=== PATIENT | male | born 1990 | race Caucasian/White ===

== ENCOUNTER 2016-06-01 14:53 | Emergency (ER) | payer MEDICAID ==
[~2016-06-01] VITALS: Ht 167.6 cm; Wt 119.0 kg
[~2016-06-01 14:53] MED LIST: CIPR500T4 PO; IBUP-1542 PO; MAG-19 PO; OMEP20CA16 PO
[2016-06-01 15:01] VITALS: Ht 167.6 cm; Wt 119.0 kg
[2016-06-01] MEDS ORDERED: ALBUTEROL 0.5% (NEB) 2.5 MG/0.5 ML AMP HHN STA (15:57)
[2016-06-01] MEDS ORDERED: predniSONE 20 MG TAB PO ONE (16:00)
[2016-06-01 16:08] LABS: URINE BLOOD (Dip) POC Negative (NEGATIVE)
[2016-06-01] MEDS ORDERED: ALBU18HF INHALATION (17:12)
[2016-06-01] MEDS ORDERED: DOXY100T20 PO (17:12)
[2016-06-01] MEDS ORDERED: PRED20TA PO (17:12)
[2016-06-01] MEDS ORDERED: AZIT250T94 PO (17:13)
--- NOTE | 2016-06-01 17:17 | ERD ---
ER Documentation Chief Complaint Date/Time DATE: 06/01/16 TIME: 17:15 Chief Complaint BIB SELF C/O SOB X 1 WEEK AND BURNING UPON URINATION X 3 DAYS HPI This 26-year-old male complains of a cough and shortness of breath the last week. He has productive sputum. He denies fevers, vomiting, abdominal pain. Is no additional complaint of some sensation of burning for last 3 days. He denies discharge. He denies any known exposure to STD or recent unprotected sex . ROS All systems reviewed and are negative except as per history of present illness. Medications Home Meds Active Scripts Azithromycin* (Zithromax*) 250 Mg Tablet, 250 MG PO .ZPACK DIRECTED, #6 TAB TAKE 500 MG (2 TABS) THE FIRST DAY THEN 250 MG (1 TAB) DAYS 2-5 Prov:LYLE LEWIS MD 06/01/16 Albuterol Sulfate* (Ventolin HFA*) 18 Gm Hfa.aer.ad, 2 PUFF INHALATION Q4H for 7 Days, #1 INHALER Prov:LYLE LEWIS MD 06/01/16 Prednisone* (Prednisone*) 20 Mg Tab, 40 MG PO DAILY for 4 Days, TAB Prov:LYLE LEWIS MD 06/01/16 Omeprazole* (Omeprazole*) 20 Mg Capsule.dr, 20 MG PO DAILY, #30 CAP Prov:AMI GOMEZ NP 05/20/15 Magaldrate/Simethicone* (Mylanta*) 355 Ml Susp, 30 ML PO QID Y for GASTROINTESTINAL UPSET, #1 BOTTLE Prov:AMI GOMEZ NP 05/20/15 Ciprofloxacin Hcl* (Ciprofloxacin Hcl*) 500 Mg Tablet, 500 MG PO BID for 10 Days , TAB Prov:AMI GOMEZ NP 02/18/15 Ibuprofen* (Ibuprofen*) 600 Mg Tablet, 600 MG PO Q6 for 3 Days, TAB Prov:LAKSHMI SMITH 01/23/15 Discontinued Scripts Doxycycline Hyclate* (Doxycycline Hyclate*) 100 Mg Tablet., 100 MG PO BID for 10 Days, TAB Prov:LYLE LEWIS MD 06/01/16 Allergies Allergies: Coded Allergies: No Known Drug Allergy (Verified Allergy, Mild, 01/23/14) PMhx/Soc History of Surgery: No Anesthesia Reaction: No Hx Neurological Disorder: No Hx Respiratory Disorders: No Hx Cardiac Disorders: Yes (heart murmurs) Hx Psychiatric Problems: No Hx Miscellaneous Medical Probl: No Hx Alcohol Use: Yes Hx Substance Use: No Hx Tobacco Use: Yes Smoking Status: Current some day smoker Physical Exam Vitals Vital Signs Date Time Temp Pulse Resp B/P Pulse Ox O2 Delivery O2 Flow Rate FiO2 06/01/16 16:18 114 20 95 21 06/01/16 15:01 97.8 122 18 139/89 100 Physical Exam Const: [] Alert, [id number] Head: Atraumatic Eyes: Normal Conjunctiva ENT: Normal External Ears, Nose and Mouth. Neck: Full range of motion..~ No meningismus. Resp: Clear to auscultation bilaterally. Scattered wheezing without rales or retractions appreciated. Cardio: Regular rate and rhythm, no murmurs Abd: Soft, non tender, non distended. Normal bowel sounds Skin: No petechiae or rashes Back: No midline or flank tenderness Ext: No cyanosis, or edema Neur: Awake and alert Psych: Normal Mood and Affect Results 24 hrs Laboratory Tests Test 06/01/16 16:10 Bedside Urine Blood Negative Bedside Urine Glucose (UA) Negative Bedside Urine Ketones (LAB) Negative Bedside Urine Leukocyte Esterase (L Trace Bedside Urine Nitrite (LAB) Negative Bedside Urine Protein (LAB) 1+ Bedside Urine pH (LAB) 7.5 Current Medications Medications (Trade) Dose Ordered Sig/Kirk Route PRN Reason Start Time Stop Time Status Last Admin Dose Admin Prednisone (Prednisone) 60 mg ONCE ONCE PO 06/01/16 16:00 06/01/16 16:01 DC 06/01/16 16:04 Albuterol (Proventil 0.5% (Neb)) 5 mg ONCE STAT HHN 06/01/16 15:57 06/01/16 15:58 DC 06/01/16 16:16 Procedures/MDM Urine shows trace leukocytes and was sent for gonorrhea chlamydia. Patient was given albuterol treatment 1 and prednisone 60 mg by mouth. Patient had improved breath sounds on his exam without rales or retractions. There is no evidence of hypoxemia or respiratory distress. Patient will be treated for bronchitis with wheezing and dysuria with Zithromax, prednisone and Ventolin. Patient is advised to follow-up with primary doctor this week or return to ER for any worsening symptoms. Patient will be called with a possible STD results. The patient was stable with no new complaints during the ER course. Clinically, there is no current evidence to suggest meningitis, sepsis, acute abdomen, pneumonia, acute coronary syndrome, pulmonary embolism, or any other emergent condition appearing to require further evaluation or hospitalization. The patient should certainly return for any new or worsening symptoms per the aftercare instructions. They should otherwise follow-up with her primary care doctor for reevaluation this week. Departure Diagnosis: Primary Impression: URI, acute Additional Impression: Urethritis Condition: Stable Patient Instructions: Understanding Urinary Tract Infections (UTIs), Bronchitis With Wheezing (Adult) Additional Instructions: Slight signs of infection on urine. Recheck for new or worsening symptoms with primary care doctor. LYLE LEWIS MD Jun 01, 2016 17:16
== END 2016-06-01 17:20 | disposition home or self-care (01) ==
LOC: FTE 14:53
DX: J06.9 Acute upper respiratory infection, unspecified (principal); N34.2 Other urethritis; F17.210 Nicotine dependence, cigarettes, uncomplicated
CPT/HCPCS: 81003; 87591; 94664; J7512; Z7502; Z7610

== ENCOUNTER 2017-05-27 10:18 | Emergency (ER) | END 2017-05-27 13:33 | disposition home or self-care (01) ==